=== PATIENT | female | born 1970 | race Caucasian/White ===

== ENCOUNTER → 2018-08-05 | Outpatient (CLI) | payer OTHER ==
[~2018-08-05] MED LIST: BARIUM SULFATE 40% (APPLE) 148 GM PWD. PO ONE
--- NOTE | 2018-08-05 10:32 | RAD ---
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 1.1 minutes of fluoroscopy time was utilized. One videofluoroscopic loop was recorded by a member of the speech Department. The patient demonstrated good oral control of the barium materials. There is prompt initiation of pharyngeal peristalsis. There is normal passage of the majority of the barium bolus through the cervical esophagus. There are minimal posterior impressions upon the lower cervical esophagus due to cervical spurs. No significant laryngeal penetration or aspiration occurred when ingesting the thin liquids, the thickened material or the barium coated solids. There was very little vallecular or piriform sinus residue following swallowing. The patient utilized a straw without difficulty. IMPRESSION: No significant abnormality is detected.
== END | disposition home or self-care (01) ==
LOC: RAD 09:30
PROVIDERS: ATTEND Internal Medicine Gastroenterology
DX: R13.19 Other dysphagia (principal); Z98.890 Other specified postprocedural states
CPT/HCPCS: 74230; 92611